=== PATIENT | male | born 1960 | race Caucasian/White ===

== ENCOUNTER 2023-01-10 07:54 | Outpatient (CLI) | payer BC, SELFPAY | END 2023-01-10 07:55 | disposition home or self-care (01) | LOC: NFLDREF 01-11 13:04 | PROVIDERS: PCP Family Medicine; Referring Provider Family Medicine; Visit Provider Family Medicine | DX: Z13.1 Encounter for screening for diabetes mellitus (principal); Z12.5 Encounter for screening for malignant neoplasm of prostate; Z13.6 Encounter for screening for cardiovascular disorders | CPT/HCPCS: 80061; 82947; 84153 ==

== ENCOUNTER 2023-01-30 08:22 | Outpatient (CLI) | payer BC, SELFPAY ==
--- NOTE | 2023-01-30 09:27 | W.ANESCHARGE ---
Anesthesia Charges Start Date/Time Anesthesia Start Date: 01/30/23 Anesthesia Start Time: 09:34 Stop Date/Time Anesthesia Stop Date: 01/30/23 Anesthesia Stop Time: 10:11
--- NOTE | 2023-01-30 10:12 | W.ANESCHARGE ---
Anesthesia Charges Start Date/Time Anesthesia Start Date: 01/30/23 Anesthesia Start Time: 09:34 Stop Date/Time Anesthesia Stop Date: 01/30/23 Anesthesia Stop Time: 10:11
== END 2023-01-30 08:23 | disposition home or self-care (01) ==
LOC: OP CLINIC 08:23
PROVIDERS: PCP Family Medicine; Visit Provider Surgery
DX: Z12.11 Encounter for screening for malignant neoplasm of colon (principal); K63.5 Polyp of colon; K57.30 Diverticulosis of large intestine without perforation or abscess without bleeding
CPT/HCPCS: 00811; 45385; 88305; J2704

== ENCOUNTER 2023-02-04 11:03 | Outpatient (CLI) | payer BC, SELFPAY | END 2023-02-04 11:04 | disposition home or self-care (01) | LOC: NFLDREF 02-05 11:54 | PROVIDERS: PCP Family Medicine; Referring Provider Family Medicine; Visit Provider Family Medicine | DX: R73.01 Impaired fasting glucose (principal) | CPT/HCPCS: 82947 ==

== ENCOUNTER 2023-03-21 19:41 | Outpatient (CLI) | payer BC, SELFPAY ==
--- NOTE | 2023-04-02 10:34 | W.PM.SLEEP ---
Sleep Study Details Details Interpreting Provider: Elizabeth Date of Sleep Study: 03/21/23 Sleep Study Details: STUDY TYPE:? Home unattended ? BMI:? 37.3 ORDERING PROVIDER:? Sarah INDICATION:? Concerns about sleep apnea ? SLEEP SUMMARY:? 271 minutes monitored RESPIRATORY SUMMARY AHI 14.2, left lateral 7.0, right lateral 17.2 Low oxygen 85 3.5% of study oxygen less than 90% Snoring 51.6% PERIODIC LIMB MOVEMENTS OF SLEEP:? Not recorded during home study CARDIAC:? Range 59-95, mean 67.3 IMPRESSION:? Mild obstructive sleep apnea worse in the right lateral position versus left lateral RECOMMENDATION: Treatment options include AutoSet CPAP, dental appliance weight loss and/or airway expansion surgery.
== END 2023-03-21 19:42 | disposition home or self-care (01) ==
LOC: SLEEP 19:41
PROVIDERS: PCP Family Medicine; Visit Provider Family Medicine
DX: G47.33 Obstructive sleep apnea (adult) (pediatric) (principal)
CPT/HCPCS: 95806

== ENCOUNTER 2024-12-08 15:12 | Outpatient (CLI) | payer BC, SELFPAY | END 2024-12-08 15:13 | disposition home or self-care (01) | LOC: NFLDREF 12-13 14:58 | PROVIDERS: PCP Family Medicine; Referring Provider Family Medicine; Visit Provider Family Medicine | DX: E11.9 Type 2 diabetes mellitus without complications (principal); R79.89 Other specified abnormal findings of blood chemistry; E66.9 Obesity, unspecified | CPT/HCPCS: 80053; 80061; 82043; 82570 ==

== ENCOUNTER 2025-01-05 07:06 | Outpatient (CLI) | payer BC, SELFPAY ==
--- NOTE | 2025-01-05 07:15 | CRLHL7_ITS ---
For Patients: As a result of the Cures Act, medical imaging exams and procedure reports are released immediately into your electronic medical record. You may view this report before your referring provider. If you have questions, please contact your health care provider. Examination: US abdominal aorta Indication: Abdominal aortic aneurysm screening. Technique: Peterson scale and color Doppler images of the aorta and common iliac arteries are obtained. Comparison: None Findings: Proximal aorta: 2.6 x 2.3 cm Mid aorta: 2.4 x 2.4 cm Distal aorta: 2.0 x 2.1 cm Right common iliac artery: 1.4 x 1.5 cm Left common iliac artery: 1.4 x 1.3 cm Impression: No abdominal aortic aneurysm. Dictated by Antonio Camara MD @ 01/05/2025 8:44:43 AM (Electronically Signed)
== END 2025-01-05 07:07 | disposition home or self-care (01) ==
LOC: US 07:07
PROVIDERS: PCP Family Medicine; Visit Provider Family Medicine
DX: Z13.6 Encounter for screening for cardiovascular disorders (principal)
CPT/HCPCS: 76706

== ENCOUNTER 2025-03-21 10:21 | Outpatient (CLI) | payer BC, SELFPAY | END 2025-03-21 10:22 | disposition home or self-care (01) | LOC: NFLDREF 03-24 08:45 | PROVIDERS: PCP Family Medicine; Referring Provider Family Medicine; Visit Provider Family Medicine | DX: E11.9 Type 2 diabetes mellitus without complications (principal) | CPT/HCPCS: 80053; 80061; 82043; 82570 ==